=== PATIENT | male | born 1960 | race Caucasian/White ===

== ENCOUNTER 2020-02-11 08:17 | Emergency (ER) | payer BC ==
[~2020-02-11] VITALS: Ht 185.4 cm; Wt 93.0 kg
[2020-02-11] MEDS ORDERED: VICTOZA (08:53)
[2020-02-11] MEDS ORDERED: METF500T17 PO (08:53)
[2020-02-11] MEDS ORDERED: CARV12.52 PO (08:53)
--- NOTE | 2020-02-11 08:53 | NUR ---
PT RESTING IN POSITION OF COMFORT IN [facility]. VSS. PT ON CONTINUOUS SPO2 AND CARDIAC MONITORING. CALL LIGHT W/IN REACH. PT INSTRUCTED ON USE, VERBALIZED UNDERSTANDING. PT DENIES FURTHER NEEDS AT THIS TIME.
--- NOTE | 2020-02-11 09:03 | NUR ---
REPORT TO MATIAS Howe.
[2020-02-11] MEDS ORDERED: IBUPROFEN 600 MG TABLET PO ONE (10:00)
--- NOTE | 2020-02-11 11:23 | NUR ---
PT ROOM AIR WHILE WALKING 89-90%. DENIES DIFFICULTY BREATHING
[2020-02-11 11:24] VITALS: BP 135/82
--- NOTE | 2020-02-11 11:56 | NUR ---
Patient/Caregiver given discharge instructions and they have confirmed that they understand the instructions. Patient ambulatory with steady gait.
--- NOTE | 2020-02-11 12:12 | NUR ---
Patient/Caregiver given discharge instructions and they have confirmed that they understand the instructions. Patient ambulatory with steady gait.
== END 2020-02-11 12:13 | disposition home or self-care (01) ==
LOC: ED 09:29
DX: U07.1 COVID-19 (principal); B34.9 Viral infection, unspecified; R06.02 Shortness of breath; M79.661 Pain in right lower leg; I10 Essential (primary) hypertension; E11.9 Type 2 diabetes mellitus without complications
CPT/HCPCS: 71045; 87635; 93005; 99285